=== PATIENT | male | born 1955 | race Caucasian/White ===

== ENCOUNTER 2018-08-13 15:52 | Emergency (ER) | payer BC ==
[2018-08-13] MEDS ORDERED: IBUPROFEN 600 MG TAB PO ONE (16:30)
--- NOTE | 2018-08-13 16:30 | EDPHY ---
H & P Stated Complaint: Skiing accident - hit right ribs, arm and hip. No LOC Time Seen by Provider: 08/13/18 16:23 HPI/ROS: CHIEF COMPLAINT: Right-sided chest pain and right hip pain HISTORY OF PRESENT ILLNESS: 62-year-old male presents after a ski accident with right sided chest pain and hip pain. He was skiing at [place] and fell directly onto his right side. Immediate onset of moderate right chest pain and mild hip pain. The cp increases with deep inspiration and movement of his right arm. He skied down the [facility] and is able to walk. He was wearing a helmet and did not strike his head. No headache or neck pain. No abdominal pain. Not on anticoagulants. REVIEW OF SYSTEMS: complete 10 point ROS negative except as noted in the HPI - Personal History Current Tetanus Diphtheria and Acellular Pertussis (TDAP): Unsure - Medical/Surgical History Hx Asthma: No Hx Chronic Respiratory Disease: No Hx Diabetes: No Hx Cardiac Disease: No Hx Renal Disease: No Hx Cirrhosis: No Hx Alcoholism: No Hx HIV/AIDS: No Hx Splenectomy or Spleen Trauma: No Other PMH: HTN. - Social History Smoking Status: Never smoked Alcohol Use: Sober Drug Use: None - Physical Exam Exam: General Appearance: Alert, pleasant Head: Atraumatic Eyes: No conjunctival erythema, PERRLA, EOMI ENT, Mouth: no oral trauma, no bony tenderness Neck: Nontender, full range of motion without pain Respiratory: normal inspection, no anterior chest wall tenderness, lungs clear bilaterally Cardiovascular: Regular rate and rhythm Abdomen: Abdomen is soft and nontender Skin: No lacerations, no abrasions Back: Right lateral thoracic tenderness, no midline T/L/S tenderness Extremities: Pelvis is stable and nontender; right hip--normal inspection, mild tenderness laterally, ROM without pain; right shoulder--NT, ROM caused rt thoracic pain, no other extremity tenderness or deformity Neurological: A&Ox3, normal motor function, normal sensory exam, cranial nerves intact, normal gait Psychiatric: Mood and affect normal Constitutional: Initial Vital Signs Temperature (C) 36.6 C 08/13/18 15:56 Heart Rate 64 08/13/18 15:56 Respiratory Rate 16 08/13/18 15:56 Blood Pressure 169/90 H 08/13/18 15:56 O2 Sat (%) 95 08/13/18 15:56 O2 Delivery Mode Room Air Allergies/Adverse Reactions: No Known Allergies Allergy (Unverified 08/13/18 16:00) Home Medications: Medication Instructions Recorded Losartan Potassium 08/13/18 Medical Decision Making - Diagnostics Imaging Results: Chest X-Ray 08/13/18 16:28 Impression: No posttraumatic abnormality identified. Right Hip, 2 views History: Pain post fall skiing Findings: There is bilateral degenerative periacetabular calcification. No acute hip fracture or pelvic ring fracture are identified. The hips are normally aligned as are the SI joints and pubic symphysis. There is hypertrophic change of both anterior superior iliac crests. Impression: Nothing acute identified. Hip X-Ray 08/13/18 16:28 Impression: No posttraumatic abnormality identified. Right Hip, 2 views History: Pain post fall skiing Findings: There is bilateral degenerative periacetabular calcification. No acute hip fracture or pelvic ring fracture are identified. The hips are normally aligned as are the SI joints and pubic symphysis. There is hypertrophic change of both anterior superior iliac crests. Impression: Nothing acute identified. Imaging: I viewed and interpreted images myself ED Course/Re-evaluation: This pt presents after a mechanical fall with rt side pain and rt hip pain. Xrays unremarkable. I suspect occult rib fx, given pt's pain (and stoic nature) . VS stable, including normal RR and O2 sat. Rib fx instructions given and torso injury precautions given. Ronald #6 prepack given. Differential Diagnosis: Differential diagnosis includes though it is not limited to fracture, intracranial hemorrhage, pneumothorax, hemothorax, intra-abdominal hemorrhage. - Data Points Medications Given: Discontinued Medications Hydrocodone Bitart/Acetaminophen (Ronald 5/325mg Prepack#6) 1 btl TAKEHOME EDNOW ONE Stop: 08/13/18 17:16 Last Admin: 08/13/18 17:43 Dose: 1 btl Ibuprofen (Motrin) 600 mg PO EDNOW ONE Stop: 08/13/18 16:31 Last Admin: 08/13/18 16:39 Dose: 600 mg Departure - Departure Disposition: Home, Routine, Self-Care Clinical Impression: RIB INJURY Condition: Good Instructions: Hydrocodone/Acetaminophen (By mouth), Rib Fracture (ED) Additional Instructions: Ibuprofen 600 mg 3 times daily while the pain persists. Take Ronald 1 tablet every 4 hr as needed for severe pain. Return for worsening symptoms, shortness of breath, abdominal pain or any concerns. Referrals: GERRI HURLEY [Other] - 5-7 days, if not improved
[2018-08-13] MEDS ORDERED: HYDROCOD/APAP 5/325 PREPACK#6 BTL TAKEHOME ONE (17:15)
[2018-08-13 17:49] VITALS: BP 144/76
== END 2018-08-13 17:48 | disposition home or self-care (01) ==
DX: R07.81 Pleurodynia (principal); I10 Essential (primary) hypertension; V00.321A Fall from snow-skis, initial encounter; Y93.23 Activity, snow (alpine) (downhill) skiing, snowboarding, sledding, tobogganing and snow tubing; Y92.838 Other recreation area as the place of occurrence of the external cause